=== PATIENT | male | born 1975 | race Caucasian/White ===

== ENCOUNTER 2018-02-18 03:34 | Emergency (ER) | payer OTHER ==
[~2018-02-18] VITALS: Ht 172.7 cm; Wt 136.1 kg
[2018-02-18 03:39] VITALS: Ht 172.7 cm; Wt 136.1 kg
[2018-02-18 05:06] VITALS: BP 137/85
== END 2018-02-18 05:06 | disposition home or self-care (01) ==
LOC: ED 03:34
DX: J45.901 Unspecified asthma with (acute) exacerbation (principal); E66.01 Morbid (severe) obesity due to excess calories; Z88.5 Allergy status to narcotic agent
CPT/HCPCS: 82962; J7512; J7613; J7644

== ENCOUNTER 2018-08-13 21:14 | Emergency (ER) | payer OTHER ==
[~2018-08-13] VITALS: Ht 172.7 cm; Wt 134.3 kg
[2018-08-13 21:39] VITALS: BP 172/100; Ht 172.7 cm; Wt 134.3 kg
== END 2018-08-13 22:11 | disposition left against medical advice (07) ==
LOC: ED 21:14
DX: Z53.21 Procedure and treatment not carried out due to patient leaving prior to being seen by health care provider (principal)